=== PATIENT | male | born 1955 | race Two or more races ===

== ENCOUNTER 2018-07-29 22:01 | Inpatient (IN) | payer OTHER ==
[~2018-07-29] VITALS: Ht 182.9 cm; Wt 55.3 kg
[~2018-07-29 22:01] MED LIST: CIPRO500 MG; LEVEMIR100 U/M1; NEURONTIN800 MG; PERCOCET 10-3251 TAB; SYNTHROID100 MCG; ULTRAM50 MG; ZANTAC150 M3; ZYRTEC10 M3
[2018-07-29] MEDS ORDERED: PHENERGAN25 MG (22:16)
[2018-07-29] MEDS ORDERED: CHLORDIAZEPOXID10 MG (22:21)
[2018-08-02] MEDS ORDERED: CEFUROXIME500 MG PO (16:26)
== END 2018-08-02 17:06 | disposition home or self-care (01) | DRG 394 ==
LOC: ER 22:01 → MEDJ 07-30 13:47 → SEC-K 07-30 13:47 → MEDJ 07-30 13:50
PROC: B246ZZZ Ultrasonography of Right and Left Heart (ICD-10-PCS; principal; 2018-07-30)
DX: K94.22 Gastrostomy infection (principal); N39.0 Urinary tract infection, site not specified; E87.1 Hypo-osmolality and hyponatremia; N17.8 Other acute kidney failure; C85.80 Other specified types of non-Hodgkin lymphoma, unspecified site; E86.0 Dehydration; B96.29 Other Escherichia coli [E. coli] as the cause of diseases classified elsewhere; B96.1 Klebsiella pneumoniae [K. pneumoniae] as the cause of diseases classified elsewhere; E03.8 Other specified hypothyroidism; K21.9 Gastro-esophageal reflux disease without esophagitis; Y83.8 Other surgical procedures as the cause of abnormal reaction of the patient, or of later complication, without mention of misadventure at the time of the procedure; Z92.3 Personal history of irradiation; Z85.09 Personal history of malignant neoplasm of other digestive organs; Z16.12 Extended spectrum beta lactamase (ESBL) resistance